=== PATIENT | female | born 1995 | race Caucasian/White ===

== ENCOUNTER 2018-04-20 23:30 | Emergency (ER) | payer MEDICAID ==
[2018-04-20] MEDS ORDERED: PSEUDOEPHEDRINE 30 MG TABLET PO STA (23:52)
--- NOTE | 2018-04-20 23:54 | ED Physician Documentation ---
PD HPI HEENT - Stated complaint Stated Complaint: LT EAR PX - Chief complaint Chief Complaint: Heent - History obtained from History obtained from: Patient - History of Present Illness Timing - onset: Today Timing - details: Gradual onset, Still present Location: Left ear Associated symptoms: No: Fever, Congestion Similar symptoms before: Has not had sx before Recently seen: Not recently seen - Additional information Additional information: patient is a 22 year old female with no significant past medical history who is presenting to the emergency department for ringing and foreign body sensation in her ear. patient states that it started yesterday. patient tried putting oil in her ear but states that the buzzing persisted. Review of Systems Ten Systems: 10 systems reviewed and negative Ears: reports: Loss of hearing, Ear pain, Tinnitus/ringing, Foreign body PD PAST MEDICAL HISTORY - Past Medical History Past Medical History: Yes Musculoskeletal: Scoliosis - Past Surgical History Past Surgical History: No - Present Medications Home Medications: Ambulatory Orders Medication Instructions Recorded Confirmed Cyclobenzaprine [Flexeril] 10 mg PO TID PRN #20 tablet 08/08/15 Sucralfate [Carafate] 1 gm PO ACHS #30 udc 08/08/15 - Allergies Allergies/Adverse Reactions: Allergies Allergy/AdvReac Type Severity Reaction Status Date / Time No Known Drug Allergies Allergy Verified 04/20/18 23:37 - Social History Does the pt smoke?: No Smoking Status: Never smoker Does the pt drink ETOH?: No Does the pt have substance abuse?: No - Immunizations Immunizations are current?: Yes - POLST Patient has POLST: No PD ED PE NORMAL - Vitals Vital signs reviewed: Yes - General General: Alert and oriented X 3, No acute distress, Well developed/nourished - HEENT HEENT: Atraumatic, PERRL, Moist mucous membranes - Cardiac Cardiac: RRR - Respiratory Respiratory: No respiratory distress - Derm Derm: Normal color - Extremities Extremities: No deformity - Neuro Neuro: Alert and oriented X 3, No motor deficit, Normal speech - Psych Psych: Normal mood PD ED PE EXPANDED - HEENT HEENT: R TM dull, L TM dull, Other (minimal fluid behind the ears but no foreign body appreciated) Results - Vitals Vitals: Vital Signs - 24 hr 04/20/18 04/21/18 23:30 00:20 Temperature 36.8 C Heart Rate 77 72 Respiratory 16 15 Rate Blood Pressure 120/60 112/68 O2 Saturation 100 98 Oxygen O2 Source Room air PD MEDICAL DECISION MAKING - ED course Complexity details: reviewed old records, reviewed results, re-evaluated patient , considered differential, d/w patient, d/w family ED course: Patient was seen and examined at bedside. there was no foreign body appreciated. patient was treated with pseudophed. patient required no further inpatient work up at this time and was stable for discharge with outpatient follow up. Departure - Departure Disposition: 01 Home, Self Care Clinical Impression: Ringing in left ear Condition: Good Instructions: Tinnitus Follow-Up: primary,care provider [Other] - Tomorrow Comments: There was no foreign body in your ears. You do have different ear anatomy, and fluid behind your ear which could be contributing to your symptoms. You can try with decongestants but you should follow up with your doctor for further evaluation and care. Discharge Date/Time: 04/21/18 00:20
[2018-04-21 00:21] VITALS: BP 112/68
== END 2018-04-21 00:20 | disposition home or self-care (01) ==
LOC: ED 23:30
DX: H93.12 Tinnitus, left ear (principal); H92.02 Otalgia, left ear
CPT/HCPCS: 99283; A9270